=== PATIENT | female | born 1985 | race Caucasian/White ===

== ENCOUNTER 2021-04-27 08:18 | Observation (INO) | payer OTHER ==
[2021-04-27] MEDS ORDERED: PNV1TABL76 MT (10:13)
== END 2021-04-27 10:30 | disposition home or self-care (01) ==
LOC: 8 EST LDRP 08:18
PROVIDERS: ADMIT Obstetrics & Gynecology; ATTEND Obstetrics & Gynecology
DX: O36.8130 Decreased fetal movements, third trimester, not applicable or unspecified (principal); O09.523 Supervision of elderly multigravida, third trimester; Z20.822 Contact with and (suspected) exposure to COVID-19; Z3A.38 38 weeks gestation of pregnancy
CPT/HCPCS: 59025; 76815; 76818; G0378; U0003; U0005; 99281

== ENCOUNTER 2021-12-26 05:59 | Day surgery (SDC) | payer MEDICAID ==
[~2021-12-26] VITALS: Ht 165.1 cm; Wt 110.2 kg
[~2021-12-26 05:59] MED LIST: CHOL500010 PO; CYAN250T3 PO; OMEG100016 PO; PNV1TABL76 MT
[2021-12-26 06:12] LABS: UCG SCREEN NEGATIVE
[2021-12-26] MEDS ORDERED: LACTATED RINGERS 1,000 ML IV SCH (06:15)
[2021-12-26] MEDS ORDERED: SKIN ADHESIVE 0.7 GM EA TOP ONE (08:07)
[2021-12-26] MEDS ORDERED: BUPIVACAINE HCL/PF 0.5% (5MG/ML) 10ML ONE (08:07)
[2021-12-26] MEDS ORDERED: CALC-1048 PO (08:29)
[2021-12-26] MEDS ORDERED: GLYCOPYRROLATE 0.2 MG/ML 2ML VIAL ONE (08:42)
[2021-12-26] MEDS ORDERED: ROCURONIUM BROMIDE 10MG/ML VIAL 5ML IV ONE (08:44)
[2021-12-26] MEDS ORDERED: HYDROMORPHONE HCL/PF 2MG/ML CPJ ONE (08:55)
[2021-12-26] MEDS ORDERED: DEXAMETHASONE 4MG/ML 1ML VIAL ONE (10:19)
[2021-12-26] MEDS ORDERED: CEFAZOLIN SODIUM 1000MG/VIAL ONE (10:19)
[2021-12-26] MEDS ORDERED: ONDANSETRON HCL 4MG/2ML INJ IV PRN (10:30)
[2021-12-26] MEDS ORDERED: KETOROLAC 60MG/2ML VIAL IM NR (10:30)
[2021-12-26] MEDS ORDERED: HYDROCODONE/ACETAMINOPHEN 5/325MG TABLET PO PRN (10:30)
[2021-12-26] MEDS ORDERED: DEXT 5%/0.45% NACL KCL 20MEQ/L 1,000 ML IV SCH (10:30)
[2021-12-26] MEDS ORDERED: IBUP-2029 MT (10:35)
[2021-12-26] MEDS ORDERED: NALOXONE HCL 0.4MG/ML VIAL IV PRN (10:45)
[2021-12-26 11:12] VITALS: BP 115/74
== END 2021-12-26 13:10 | disposition home or self-care (01) ==
LOC: OR 05:59
PROVIDERS: ATTEND Specialist
DX: Z30.2 Encounter for sterilization (principal); E66.9 Obesity, unspecified; R73.03 Prediabetes; Z79.899 Other long term (current) drug therapy; Z98.890 Other specified postprocedural states; Z88.0 Allergy status to penicillin; Z68.41 Body mass index [BMI] 40.0-44.9, adult; Z20.822 Contact with and (suspected) exposure to COVID-19
CPT/HCPCS: 58661; 81025; 82962; 87426; 88302; C9803; J0690; J1100; J1170; J1885; J3490